=== PATIENT | female | born 1975 | race Caucasian/White ===

== ENCOUNTER 2020-12-01 18:25 | Emergency (ER) | payer SELFPAY ==
[2020-12-01] VITALS (9 sets, daily range): BP systolic 129–151; BP diastolic 65–83; PULSE 64–108; RESP 17–33; TEMP 36.6; O2SAT 92–99; BMI 18.2
--- NOTE | 2020-12-01 18:40 | XRR_ITS ---
PROCEDURE INFORMATION: Exam: XR Chest, 1 View Exam date and time: 12/01/2020 7:34 PM Age: 45 years old Clinical indication: Chest pain; Type not specified; Additional info: Cp TECHNIQUE: Imaging protocol: XR of the chest Views: 1 view. COMPARISON: No relevant prior studies available. FINDINGS: Lungs: Left base atelectasis. The right lung is clear. Pleural space: Blunting of the left costophrenic angle could represent a pleural effusion. No pneumothorax. Heart/Mediastinum: Unremarkable. No cardiomegaly. Diaphragm: Elevation of the left diaphragm. Bones/joints: Scoliosis. XR/XR chest 1V portable [id number] IMPRESSION: 1. Left base atelectasis and possible pleural effusion.
--- NOTE | 2020-12-01 18:40 | ECG_ITS ---
[facility] Test Date: 2020-12-01 Pat Name: Jeanmarie Ho Department: Room: Gender: Female Television Announcer: : 1975 Requested By: Kaleb Bolden Order Number: [id number] Jesika MD: Osei Toney M.D. Measurements Intervals [place] Rate: 79 P: 47 AK: 147 QRS: 49 QRSD: 88 T: 61 QT: 386 QTc: 443 Interpretive Statements SINUS RHYTHM ST ELEVATION, CONSIDER INFERIOR INJURY [MARKED ST ELEVATION W/O NORMALLY INFLECTED T WAVE IN II/aVF] ACUTE HI No previous ECG available for comparison Electronically Signed On 12-02-2020 9:20:52 SENIOR IT ASSISTANT by Osei Toney M.D. [id number]
--- NOTE | 2020-12-01 18:49 | ED_ITS ---
HPI - Chest Pain General: Chief Complaint: Chest Pain Stated Complaint: chest pain Time Seen by Provider: 12/01/20 18:39 History of Present Illness: HPI narrative: 45-year-old female complains of pleuritic right-sided chest pain she states from her shoulder to her belly on the right. She says that she has had fever. She says she has been coughing. It radiates to her right arm. She is having trouble breathing. It hurts to breathe. She notes that she was told she had cracked ribs on that side last week. She also says I have had a cold MD complaint: chest pain Pertinent past history: other Onset (ago): hour(s) (24) Timing of current episode: constant Prior episodes: No Onset: during rest Pain location: right chest Pain radiation: right arm Severity: severe Quality: sharp Relieving factors: nothing Exacerbating factors: inspiration and movement Associated symptoms: Reports dyspnea and fever(s); Deny abdominal pain, leg edema or palpitations Review of Systems Const: Reports: fever(s) Eyes: Denies: change in vision ENMT: Denies: odynophagia, swelling of lips/tongue or sinus pain Card: Denies: chest pain, palpitations, irregular heart rhythm or edema Resp: Reports: dyspnea GI: Denies: abdominal pain : Denies: dysuria or hematuria Musc: Denies: neck pain or joint redness Skin/Breast: Reports: rash, pruritus, erythema and new lesions (Draining abscess from her chin) Neuro: Denies: headache(s), dizziness, vertigo, confusion or seizure-like activity Psych: Denies: anxiety, visual hallucinations or auditory hallucinations Physical Exam Const: GENERAL APPEARANCE: cooperative, anxious and frail appearing NUTRITIONAL APPEARANCE: thin ORIENTATION/CONSCIOUSNESS: Yes oriented to person, Yes oriented to place and Yes oriented to time HENMT: COMMON NORMALS: normocephalic, external ears normal and Normal external nose present HEAD & SCALP: normocephalic NOSE: Normal external nose present and No nasal discharge present EXTERNAL EAR: Yes external ears normal MOUTH: tongue normal Eye: COMMON NORMALS: Equal, round and reactive pupils present, EOMs intact bilaterally and conjunctivae normal EYELID: eyelids normal CONJUNCTIVA: Yes conjunctivae normal PUPIL: Yes Equal, round and reactive pupils present Neck/C-Spine: GENERAL: No tracheal deviation Chest: COMMONS NORMALS: normal inspection of the chest CHEST: Yes tenderness and Yes other (Right-sided tenderness diffusely) Resp: COMMON NORMALS: clear to auscultation bilaterally EFFORT & INSPECTION: Yes tachypneic, No respiratory distress, Yes labored, Yes grunting, No retractions, Yes uses accessory muscles and No tracheal deviation AUSCULTATION: clear to auscultation bilaterally, no rhonchi, no wheezes and lung sounds not diminished Cardio: COMMON NORMALS: regular rhythm RATE: tachycardic RHYTHM: regular rhythm HEART SOUNDS: no murmurs PERIPHERAL PULSES: radial pulses present GI: INSPECTION: No abdominal distension AUSCULTATION: No Hyperactive bowel sounds present and No Hypoactive bowel sounds present PALPATION: No Guarding due to palpation present (GI) and No Rigid due to palpation PERCUSSION: no dullness to percussion and no tympanic to percussion : BLADDER/KIDNEY EXAM: Yes CVA tenderness on the right Back/Pelvis: GENERAL BACK: Yes CVA tenderness Neuro: SENSORIUM/ORIENTATION: Yes oriented to person, Yes oriented to place and Yes oriented to time Psych: COMMON NORMALS: mental status grossly normal Skin: COMMON NORMALS: no rashes or lesions noted GENERAL SKIN EXAM: no rashes or lesions noted Course Vital Signs: Vital signs: Vital Signs Temperature 97.8 F 12/01/20 18:40 Pulse Rate 85 12/01/20 23:34 Respiratory Rate 18 12/01/20 23:34 Blood Pressure 148/83 12/01/20 23:34 Pulse Oximetry 94 12/01/20 23:34 MDM - Chest Pain MDM Narrative: Medical decision making narrative: 45-year-old female with right-sided pleuritic chest pain. Her hemoglobin is 11.8. Platelet count 420. Sodium mildly low at 127. Her troponin level was normal. EKG is normal as well with a normal sinus rhythm, rate 75, normal axis and intervals this again is repeated at 2 hours and is the same. CTA of the chest is ordered due to a significantly high D-dimer of 4.2. Rapid Covid is negative. CTA of the chest showed no pulmonary embolus, but did show a left-sided pleural effusion with multiple mediastinal lymph nodes. Follow-up CT of the belly was suggested which is ordered and pending. This patient is high risk for noncompliance, and not following through, so workup completed here is best. CT of the abdomen pelvis shows multiple stones in the gallbladder which is distended. Patient likely has biliary colic related to this. There is no ductal dilatation. The wall is not thickened. There is no pericholecystic fluid. She will be discharged to follow-up with surgery. Multiple lymph nodes are noted in the upper retroperitoneum as well. She needs follow-up with this as well. need for follow-up on both was explained extensively Lab Data: Labs: Lab Results 12/01/20 12/01/20 12/01/20 Range/Units 19:00 19:00 19:00 WBC 11.8 H (4.0-10.0) 10^3/ uL RBC 4.11 (4.1-5.3) 10^6/u L Hgb 12.9 (11.5-15.3) g/dL Hct 39.8 (37.0-47.0) % MCV 96.8 (81-99) fL MCH 31.4 (28.0-34.0) pg MCHC 32.4 (30.0-36.0) g/dL RDW 13.4 (12.1-15.1) % Plt Count 420 H (130-400) 10^3/c mm MPV 9.4 (7.4-10.4) fL Neut % (Auto) 84.7 % Lymph % (Auto) 8.0 % Barnes % (Auto) 5.5 % Eos % (Auto) 0.0 % Baso % (Auto) 0.3 % Neut # (Auto) 10.01 H (1.8-7.7) 10^3/u L Lymph # (Auto) 1.0 (0.8-4.8) 10^3/u L Barnes # (Auto) 0.7 (0.2-0.9) 10^3/u L Eos # (Auto) 0.0 (0.0-0.8) 10^3/u L Baso # (Auto) 0.0 (0.0-0.1) 10^3/u L Nucleated RBC % (a uto) 0 % Nucleated RBCs # 0.0 /100WBC PT 13.00 (12.1-14.9) SECO NDS INR 0.95 (0.8-1.2) APTT 43.7 H (23.9-36.7) SECO NDS D-Dimer 4.20 H (0-0.59) ug/mIFE U Sodium 127 L (136-145) mmol/L Potassium 4.4 (3.5-5.1) mmol/L Chloride 92 L (98-107) mmol/L Carbon Dioxide 26 (22-29) mmol/L Anion Gap 13.4 (5-19) BUN 11 (6-20) mg/dL Creatinine 0.5 (0.5-0.9) mg/dL GFR Calculation 132.2 H (90-130) mL/min Glucose 210 H (65-115) mg/dL Calculated Osmolal ity 270 L (285-295) mOsm/k g Calcium 8.6 (8.5-10.5) mg/dL Total Bilirubin 0.3 (0.15-1.2) mg/dL AST 26 (0-32) U/L ALT 35 H (0-33) U/L Alkaline Phosphata se 205 H (35-105) IU/L Creatine Kinase 196 H (26-192) U/L Troponin T Baselin e (0-10) ng/L NT-Pro-B Natriuret Pep 330 H (0-125) pg/mL Total Protein 6.0 L (6.6-8.7) g/dL Albumin 3.2 L (3.5-5.2) g/dL Globulin 2.8 (1.3-4.6) g/dL SARS-CoV-2 Ag (Rap id) (Negative) 12/01/20 12/01/20 Range/Units 19:00 20:45 WBC (4.0-10.0) 10^3/ uL RBC (4.1-5.3) 10^6/u L Hgb (11.5-15.3) g/dL Hct (37.0-47.0) % MCV (81-99) fL MCH (28.0-34.0) pg MCHC (30.0-36.0) g/dL RDW (12.1-15.1) % Plt Count (130-400) 10^3/c mm MPV (7.4-10.4) fL Neut % (Auto) % Lymph % (Auto) % Barnes % (Auto) % Eos % (Auto) % Baso % (Auto) % Neut # (Auto) (1.8-7.7) 10^3/u L Lymph # (Auto) (0.8-4.8) 10^3/u L Barnes # (Auto) (0.2-0.9) 10^3/u L Eos # (Auto) (0.0-0.8) 10^3/u L Baso # (Auto) (0.0-0.1) 10^3/u L Nucleated RBC % (a uto) % Nucleated RBCs # /100WBC PT (12.1-14.9) SECO NDS INR (0.8-1.2) APTT (23.9-36.7) SECO NDS D-Dimer (0-0.59) ug/mIFE U Sodium (136-145) mmol/L Potassium (3.5-5.1) mmol/L Chloride (98-107) mmol/L Carbon Dioxide (22-29) mmol/L Anion Gap (5-19) BUN (6-20) mg/dL Creatinine (0.5-0.9) mg/dL GFR Calculation (90-130) mL/min Glucose (65-115) mg/dL Calculated Osmolal ity (285-295) mOsm/k g Calcium (8.5-10.5) mg/dL Total Bilirubin (0.15-1.2) mg/dL AST (0-32) U/L ALT (0-33) U/L Alkaline Phosphata se (35-105) IU/L Creatine Kinase (26-192) U/L Troponin T Baselin e 7 (0-10) ng/L NT-Pro-B Natriuret Pep (0-125) pg/mL Total Protein (6.6-8.7) g/dL Albumin (3.5-5.2) g/dL Globulin (1.3-4.6) g/dL SARS-CoV-2 Ag (Rap id) Negative (Negative) Discharge Plan Discharge Patient Disposition: Home Clinical Impression: Biliary colic Condition: Stable Prescriptions: [place] 5-325 mg tablet 1 tab PO Q6H Qty: 7 RF: 0 Zofran 4 mg tablet 4 mg PO Q6H PRN (Reason: nausea and vomiting) Qty: 10 RF: 0 Discharge Orders: Discharge ED (Routine); Ordered 12/01/20 Ordered By: Kaelb Le Referrals: Robbin Serrato MD [Physician] - Discharge Diet: Advance as tolerated and Clear Liquid Discharge Activity: Increase activity as tolerated Patient Instructions: Biliary Colic (ED) Activity Restrictions/Additional Instructions: Return for fever greater than 100, vomiting liquids or medications, worsening pain despite treatment. Follow-up with surgery as listed above. Also, case management referral has been placed for a primary care physician appointment. There were abnormal lymph nodes on your CAT scan which need to be followed up, likely with more testing as an outpatient. Coding Level of Care Code ED Closed Circuit Screen Watcher for Chg Fwd Exam Comprehensive
[2020-12-01] MEDS: ketorolac 30 mg/mL INJ IVP (19:16)
[2020-12-01] MEDS: haloperidol inj 5 mg/mL INJ 1 mL 3 MG IVP (19:16)
[2020-12-01 19:58] LABS: Basophils % 0.3 %; Hematocrit 39.8 % (37.0-47.0); Hemoglobin 12.9 g/dL (11.5-15.3); Mean Corpuscular HGB Conc 32.4 g/dL (30.0-36.0); Mean Corpuscular Hemoglobin 31.4 pg (28.0-34.0); Mean Corpuscular Volume 96.8 fL (81-99); Mean Platelet Volume 9.4 fL (7.4-10.4); Monocytes # 0.7 10^3/uL (0.2-0.9); Monocytes % 5.5 %; Neutrophils # 10.01 10^3/uL (1.8-7.7); Neutrophils % 84.7 %; Nucleated Red Blood Cells % 0 %; Platelet Count 420 10^3/cmm (130-400); Red Blood Count 4.11 10^6/uL (4.1-5.3); Red Cell Distribution Width 13.4 % (12.1-15.1); White Blood Count 11.8 10^3/uL (4.0-10.0)
[2020-12-01 20:07] LABS: INR 0.95 (0.8-1.2)
[2020-12-01 20:08] LABS: Partial Thromboplastin Time 43.7 SECONDS (23.9-36.7)
[2020-12-01 20:15] LABS: Troponin(5th) Baseline 7 ng/L (0-10)
[2020-12-01 20:33] LABS: Alanine Aminotransferase 35 U/L (0-33); Albumin Level 3.2 g/dL (3.5-5.2); Alkaline Phosphatase 205 IU/L (35-105); Anion Gap 13.4 (5-19); Aspartate Amino Transferase 26 U/L (0-32); Blood Urea Nitrogen 11 mg/dL (6-20); Calcium 8.6 mg/dL (8.5-10.5); Carbon Dioxide 26 mmol/L (22-29); Chloride 92 mmol/L (98-107); Creatine Phosphokinase 196 U/L (26-192); Globulin 2.8 g/dL (1.3-4.6); Glomerular Filtration Rate 132.2 mL/min (90-130); Glucose 210 mg/dL (65-115); NT Pro B Type Natriuretic Pept 330 pg/mL (0-125); Osmolality Calculated 270 mOsm/kg (285-295); Potassium 4.4 mmol/L (3.5-5.1); Sodium 127 mmol/L (136-145); Total Bilirubin 0.3 mg/dL (0.15-1.2)
--- NOTE | 2020-12-01 20:37 | CTR_ITS ---
PROCEDURE INFORMATION: Exam: CT Angiography Chest With Contrast Exam date and time: 12/01/2020 8:45 PM Age: 45 years old Clinical indication: Right-sided chest pain; Additional info: R sided cp TECHNIQUE: Imaging protocol: Computed tomographic angiography of the chest with intravenous contrast. 3D rendering (Not supervised by radiologist): MIP and/or 3D reconstructed images were created by the technologist. Radiation optimization: All CT scans at this facility use at least one of these dose optimization techniques: automated exposure control; mA and/or kV adjustment per patient size (includes targeted exams where dose is matched to clinical indication); or iterative reconstruction. Contrast material: OMNI 350; Contrast volume: 95 ml; Contrast route: INTRAVENOUS (IV); COMPARISON: CR (CHEST, ) 12/01/2020 7:55 PM RADIATION DOSE METRICS: Total DLP (mGy-cm): 499.89 FINDINGS: Pulmonary arteries: No filling defects identified in the pulmonary arteries. Some portions of the arteries are obscured by breathing motion artifact. Aorta: Unremarkable. No aortic aneurysm. No aortic dissection. Lungs: Emphysema. 8 mm noncalcified nodule in the right lower lobe, series 2, image 208. Atelectasis in the lingula and left lower lobe, adjacent to the pleural effusion. Pleural space: Semi loculated left pleural effusion which is predominantly subpulmonic in location with extension along the left mediastinum. No visible parietal or visceral pleural thickening. No pneumothorax or pleural gas. Heart: Unremarkable. No cardiomegaly. No pericardial effusion. Lymph nodes: Prominent mediastinal and left hilar lymph nodes measuring up to 1.2 cm short axis. Prominent retroperitoneal lymph nodes. 1.5 cm oval density anterior to the left kidney with calcifications is most likely a lymph node. Bones/joints: Thoracic scoliosis. No compression fracture. Soft tissues: Mild body wall edema. CT/CT angio chest PE protcl [id number] IMPRESSION: 1. No evidence for pulmonary embolus. 2. Semi loculated subpulmonic and medial left pleural effusion with adjacent left base atelectasis. 3. Prominent mediastinal, left hilar, and retroperitoneal lymph nodes. These are most likely reactive or inflammatory, however a neoplastic process such as lymphoma cannot be excluded. Follow-up with a CT scan of the abdomen pelvis is recommended to determine the full extent of the retroperitoneal lymphadenopathy. 4. 8 mm right lung nodule. For patients at low risk (minimal or absent history of smoking and of other known risk factors), recommend CT Chest at 6-12 months, then consider CT Chest at 18-24 months. For patients at high risk (history of smoking or of other known risk factors), recommend CT Chest at 6-12 months, then CT Chest at 18-24 months. (Reference: [place]) References: [place] Amezcua, et al. Guidelines for Management of Incidental Pulmonary Nodules Detected on CT Images: From the Fleischner Society 2017. Radiology. 2017;284(1):228-243. Radiation Dose CTDIVOL = (mGy): DLP = 499.89 (mGy-cm)
--- NOTE | 2020-12-01 20:40 | ECG_ITS ---
[facility] Test Date: 2020-12-01 Pat Name: Jeanmarie Ho Department: Room: Gender: Female Rehabilitation Inspector: : 1975 Requested By: Kaleb Bolden Order Number: [id number] Jesika MD: Osei Toney M.D. Measurements Intervals [place] Rate: 68 P: 50 [place]: 166 QRS: 53 QRSD: 90 T: 65 QT: 409 QTc: 438 Interpretive Statements SINUS RHYTHM WITH SINUS ARRHYTHMIA No previous ECG available for comparison Electronically Signed On 12-02-2020 20:30:29 IP COUNSEL by Osei Toney M.D. [id number]
[2020-12-01] MEDS: iohexol 350 mg/mL 100 mL Btl IV (21:03)
[2020-12-01 21:25] LABS: SARS Covid-2 Antigen Negative (Negative)
--- NOTE | 2020-12-01 21:58 | CTR_ITS ---
PROCEDURE INFORMATION: Exam: CT Abdomen And Pelvis Without Contrast Exam date and time: 12/01/2020 10:00 PM Age: 45 years old Clinical indication: Abdominal pain; Localized; Left; Additional info: Left side pain TECHNIQUE: Imaging protocol: Computed tomography of the abdomen and pelvis without contrast. Radiation optimization: All CT scans at this facility use at least one of these dose optimization techniques: automated exposure control; mA and/or kV adjustment per patient size (includes targeted exams where dose is matched to clinical indication); or iterative reconstruction. COMPARISON: No relevant prior studies available. RADIATION DOSE METRICS: Total DLP (mGy-cm): 345.38 FINDINGS: Pleural space: Left pleural effusion. Liver: Normal. No mass. Gallbladder and bile ducts: Multiple calcified stones in the gallbladder which is fluid distended. No visible wall thickening. The bile ducts are normal. Pancreas: Normal. No ductal dilation. Spleen: Normal. No splenomegaly. Adrenal glands: Normal. No mass. Kidneys and ureters: The kidneys are normal with some contrast excretion. No hydronephrosis. Stomach and bowel: Moderate stool scattered throughout the stool with gas in the rectum. The stomach and small bowel are unremarkable. Appendix: The appendix is visualized and is normal. Intraperitoneal space: Unremarkable. No free air. No significant fluid collection. Vasculature: Unremarkable. No abdominal aortic aneurysm. Lymph nodes: Multiple prominent lymph nodes in the upper retroperitoneum measuring up to 1.4 cm short axis. These are difficult to visualize due to decreased fat content in the retroperitoneum and lack of IV contrast. Urinary bladder: Contrast in the urinary bladder which appears normal. Reproductive: Unremarkable as visualized. Bones/joints: Unremarkable. No acute fracture. Soft tissues: Diffuse body wall edema. CT/CT abdomen pelvis con [id number] IMPRESSION: 1. Prominent retroperitoneal lymph nodes measuring up to 1.4 cm in short axis. These are poorly visualized. These could be reactive or inflammatory. A neoplastic process such as lymphoma cannot be entirely excluded. 2. Cholelithiasis with a distended gallbladder. 3. Stool burden in the colon could indicate constipation in the right clinical setting. Radiation Dose CTDIVOL = (mGy): DLP = 345.38 (mGy-cm)
[2020-12-01] MEDS: morphine 4 mg/mL SDV 1 mL IVP (22:25)
[2020-12-02 00:54] VITALS: PULSE 108; RESP 21; O2SAT 95
[2020-12-02 01:15] VITALS: BP 143/78; PULSE 93; O2SAT 92
--- NOTE | 2020-12-03 10:25 | DCPLANNER ---
manager validation had message to speak with patient about getting established with a primary care physician. manager validation unable to speak with patient due to no phone number on face sheet and no phone number in chart.
[2020-12-04 15:05] LABS: Coronavirus Test Green County Not Detected
== END 2020-12-02 01:16 | disposition home or self-care (01) ==
PROVIDERS: Emergency Provider Emergency Medicine
DX: K80.50 Calculus of bile duct without cholangitis or cholecystitis without obstruction (principal)
CPT/HCPCS: 12345; 71045; 71275; 74176; 80053; 82550; 83880; 84484; 85025; 85378; 85610; 85730; 87426; 87635; 93005; 96374; 96375; 99283; 99284; J1630; J1885; J2270; Q9967